=== PATIENT | female | born 1995 | race African-American/Black ===

== ENCOUNTER 2017-04-16 19:23 | Emergency (ER) | payer SELFPAY | END 2017-04-16 21:31 | disposition home or self-care (01) | LOC: ERS 19:23 | DX: N92.6 Irregular menstruation, unspecified (principal); Z32.02 Encounter for pregnancy test, result negative | CPT/HCPCS: 81025; 99282 ==

== ENCOUNTER 2017-11-18 22:29 | Emergency (ER) | payer OTHER, SELFPAY ==
[2017-11-18 22:55] LABS: Bilirubin Negative (Negative); Blood, Urine Negative (Negative); Clarity CLOUDY (Clear); Glucose, Urine (Dipstick) Negative (Negative); Leukocyte Large (Negative); Nitrite Negative (Negative); Protein, Urine (Dipstick) Trace mg/dL (Neg-Trace); Specific Gravity, Urine 1.025 (1.002-1.036)
[2017-11-18 22:57] LABS: Bacteria/HPF Rare-Few HPF (None Seen); Hyaline Casts/LPF 0-3 HYALINE CAST LPF (0-3 Hyaline); Pathc Cast-AUWi Flag 0.58 (0-2.49); RBC/HPF 0-3 HPF (0-3); Squamous Epithelial 0-3 HPF (0-3)
[2017-11-18] MEDS ORDERED: Lidocaine 1% PF 5 ML VIAL ONE (23:15)
[2017-11-18] MEDS ORDERED: cefTRIAXone\\ROCEPHIN 250 MG VIAL ONE (23:15)
[2017-11-18] MEDS ORDERED: Azithromycin 250 MG TAB ONE (23:15)
== END 2017-11-18 23:36 | disposition home or self-care (01) ==
LOC: ERS 22:29
DX: O98.812 Other maternal infectious and parasitic diseases complicating pregnancy, second trimester (principal); B37.3 Candidiasis of vulva and vagina; Z3A.23 23 weeks gestation of pregnancy
CPT/HCPCS: 81003; 81015; 87086; 87480; 87491; 87510; 87591; 87660; 96372; J0696; J2001

== ENCOUNTER 2018-03-13 21:21 | Day surgery (SDC) | payer OTHER ==
[2018-03-13 21:57] VITALS: BP 123/69; TEMP 99.3; BMI 41.5
--- NOTE | 2018-03-13 22:31 | PDOC.LDHP ---
Labor and Delivery H&P Chief complaint: abdominal pain (cramping quality, episodic, similar to menstrual cramps) HPI: 22 yo @ 39.6 by LMP who has had care at [facility] presents for evaluation of episodic "period like" cramping that is episodic occurring every 5-10 minutes which started at approx 2030 this evening. She is scheduled for post dates induction next week. She denies associated NVDC, fever/chills, cp , sob, vaginal bleeding, LOF, vaginal discharge, dysuria, hematuria. Reports positive movement. ROS: -General:Denies fever, chills -CV: Denies CP, edema -Respiratory: denies SOB, cough -Abd: reports abdominal cramping, denies nvdc -OB: Denies LOF, vaginal bleeding, vaginal discharge, reports good movement Current gestational age (weeks): 39 (+6) Due date: 03/14/18 Dating criteria: last menstrual period, first trimester ultrasound Grav: 1 Para: 0 Current complications: none Abnormal US findings: No (No records available) Current medications: pre-izabela vitamins Previous surgical history: none Social history: none - Physical Exam Vital signs reviewed and normal: yes General: NAD, resting, breathing through contractions Heart: RRR Lungs: nonlabored breathing Abdomen: NTTP Extremeties: no edema FHT: category 1, variability present [place] contractions every: 10 minutes - Vaginal Exam cm dilated: 0 Effacement: 0% Station: -3 - OB Labs Blood type: unknown RH: unknown Antibody Screen: unknown HIV: unknown RPR: unknown HEPSAg: unknown 1 hour GCT: unknown GBS: unknown Urine drug screen: not done - Assessment L&D Assessment: term patient in labor (latent phase vs zac diaz) TIUP in latent labor vs sporadic zac diaz ctx: - reactive strip on EFM w/ baseline fhts 140s with positive accels - cervical check c/t/h - rare contractions on toco monitor - latent labor in primip - PO hydrate and discharge to home with labor precautions and recommend f/u with primary OB provider - Plan Plan: other (discharge to home after 30 minutes of reactive strip and po hydration) <Nick Ruggiero - Last Filed: 03/13/18 22:26> <Bal Kinsey - Last Filed: 03/14/18 07:22> Allergies/Adverse Reactions: Allergies Allergy/AdvReac Type Severity Reaction Status Date / Time No Known Drug Allergies Allergy Verified 03/13/18 21:50 Attending Addendum - Attending Addendum Date/Time: 03/14/18720 I personally evaluated the patient and discussed the management with Dr. Ruggiero I agree with the History, Examination, Assessment and Plan documented above with any addition or exceptions noted below. <Bal Kinsey - Last Filed: 03/14/18 07:22>
== END 2018-03-13 23:02 | disposition home or self-care (01) ==
LOC: L&D/OP 21:21
PROVIDERS: ATTEND Obstetrics & Gynecology
DX: O47.1 False labor at or after 37 completed weeks of gestation (principal); O99.89 Other specified diseases and conditions complicating pregnancy, childbirth and the puerperium; R10.9 Unspecified abdominal pain; Z3A.39 39 weeks gestation of pregnancy; Z79.899 Other long term (current) drug therapy
CPT/HCPCS: 99282

== ENCOUNTER 2018-06-04 11:22 | Emergency (ER) | payer OTHER ==
[2018-06-04] MEDS ORDERED: Lidocaine 1% (PF) 30 ML VIAL ONE (12:21)
== END 2018-06-04 13:35 | disposition home or self-care (01) ==
LOC: ERS 11:22
DX: L02.411 Cutaneous abscess of right axilla (principal)
CPT/HCPCS: 10060; J2001

== ENCOUNTER 2018-08-29 17:26 | Emergency (ER) | payer OTHER, SELFPAY ==
[2018-08-29] MEDS ORDERED: Ondansetron ODT 4 MG TAB ONE (17:35)
[2018-08-29 17:51] LABS: Bilirubin Negative (Negative); Blood, Urine Negative (Negative); Clarity CLOUDY (Clear); Glucose, Urine (Dipstick) Negative (Negative); Leukocyte Negative (Negative); Nitrite Negative (Negative); Pregnancy Test - Urine (BHCG) Negative (Negative); Pregu Control Background? CLEAR/WHITE (CLR/WHITE); Pregu Control Bar Appear? YES (CONTROL BAR); Protein, Urine (Dipstick) Negative (Neg-Trace); Specific Gravity 1.023 (1.002-1.036); Specific Gravity, Urine 1.023 (1.002-1.036); pH, Urine 7.5 (5.0-9.0)
[2018-08-29] MEDS ORDERED: Dicyclomine 20 MG TAB ONE (18:42)
== END 2018-08-29 19:50 | disposition home or self-care (01) ==
LOC: ERS 17:26
DX: R11.2 Nausea with vomiting, unspecified (principal)
CPT/HCPCS: 81003; 81025; 99284; Q0162

== ENCOUNTER 2019-01-25 22:38 | Emergency (ER) | payer SELFPAY ==
[2019-01-25 23:07] LABS: Bacteria/HPF 4+ HPF (None Seen); Bilirubin Negative (Negative); Clarity Clear (Clear); Glucose, Urine (Dipstick) Normal (Negative); Leukocyte 500 Leu/uL (Negative); Mucous/LPF 4+ LPF (<2+); Nitrite 2+ (Negative); Pregnancy Test - Urine (BHCG) Negative (Negative); Pregu Control Background? CLEAR/WHITE (CLR/WHITE); Pregu Control Bar Appear? YES (CONTROL BAR); Protein, Urine (Dipstick) 20 mg/dL (Neg-Trace); Specific Gravity 1.033 (1.002-1.036); Squamous Epithelial 0-3 HPF (0-3); Urobilinogen Normal mg/dL (Less than 2); WBC/HPF 21-50 HPF (0-3)
[2019-01-25 23:08] LABS: Blood, Urine Trace (Negative)
[2019-01-25] MEDS ORDERED: cefTRIAXone\\ROCEPHIN 250 MG VIAL ONE (23:18)
[2019-01-25] MEDS ORDERED: Azithromycin 250 MG TAB ONE (23:18)
[2019-01-25] MEDS ORDERED: Lidocaine 1% (PF) 30 ML VIAL ONE (23:18)
[2019-01-28 01:14] LABS: GC by PCR Inconclusive (NotDetected)
[2019-01-28 01:15] LABS: Chlamydia by PCR Inconclusive (NotDetected)
== END 2019-01-25 23:35 | disposition home or self-care (01) ==
LOC: ERS 22:38
DX: N72 Inflammatory disease of cervix uteri (principal); N89.8 Other specified noninflammatory disorders of vagina
CPT/HCPCS: 81003; 81015; 81025; 87077; 87086; 87186; 87480; 87491; 87510; 87591; 87660; 96372; 99283; J0696; J2001

== ENCOUNTER 2019-05-30 21:54 | Emergency (ER) | payer SELFPAY | END 2019-05-30 22:42 | disposition home or self-care (01) | LOC: ERS 21:54 | DX: Z11.3 Encounter for screening for infections with a predominantly sexual mode of transmission (principal) | CPT/HCPCS: 99281 ==

== ENCOUNTER 2020-07-29 15:44 | Emergency (ER) | payer SELFPAY ==
[2020-07-29 16:25] LABS: Bacteria/HPF 1+ HPF (None Seen); Bilirubin Negative (Negative); Blood, Urine Trace (Negative); Clarity Turbid (Clear); Glucose, Urine (Dipstick) Normal (Negative); Ketone, Urine Negative (Negative); Leukocyte 500 Leu/uL (Negative); Nitrite Negative (Negative); Protein, Urine (Dipstick) 20 mg/dL (Neg-Trace); Specific Gravity, Urine 1.022 (1.002-1.036); Sperm/HPF Rare HPF (None Seen); Urobilinogen Normal mg/dL (Less than 2); Yeast-Budding 2+ HPF (None Seen); pH, Urine 7.5 (5.0-9.0)
[2020-07-29] MEDS ORDERED: cefTRIAXone\\ROCEPHIN 500 MG VIAL ONE (17:12)
[2020-07-29] MEDS ORDERED: Lidocaine 1% (PF) 30 ML VIAL ONE (17:12)
[2020-07-29 17:27] LABS: Pregnancy Test - Urine (BHCG) Negative (Negative); Pregu Control Background? CLEAR/WHITE (CLR/WHITE); Pregu Control Bar Appear? YES (CONTROL BAR); Specific Gravity 1.022 (1.002-1.036)
[2020-07-31 21:20] LABS: Chlamydia by PCR Not Detected (NotDetected); GC by PCR Not Detected (NotDetected)
== END 2020-07-29 18:22 | disposition home or self-care (01) ==
LOC: ERS 15:44
DX: B37.49 Other urogenital candidiasis (principal)
CPT/HCPCS: 81003; 81015; 81025; 87086; 87480; 87491; 87510; 87591; 87660; 96372; 99283; J0696; J2001

== ENCOUNTER 2020-08-12 17:54 | Emergency (ER) | payer MEDICAID, SELFPAY ==
[2020-08-12] MEDS ORDERED: Lidocaine 1% (PF) 30 ML VIAL ONE (18:24)
== END 2020-08-12 19:45 | disposition home or self-care (01) ==
LOC: ERS 17:54
DX: L02.411 Cutaneous abscess of right axilla (principal)
CPT/HCPCS: 10060; J2001

== ENCOUNTER 2020-11-19 19:39 | Emergency (ER) | payer SELFPAY ==
[2020-11-19 20:59] LABS: Bilirubin Negative (Negative); Blood, Urine Trace (Negative); Glucose, Urine (Dipstick) Negative (Negative); Ketone, Urine Negative (Negative); Leukocyte Small (Negative); Nitrite Negative (Negative); Protein, Urine (Dipstick) Negative (Neg-Trace); Urobilinogen 0.2 mg/dL (Less than 2)
[2020-11-19 21:07] LABS: Clarity Cloudy (Clear); Pregnancy Test - Urine (BHCG) Negative (Negative); Pregu Control Background? CLEAR/WHITE (CLR/WHITE); Pregu Control Bar Appear? YES (CONTROL BAR)
[2020-11-19 21:13] LABS: Bacteria/HPF 3+ HPF (None Seen); Squamous Epithelial 21-50 HPF (0-3); WBC/HPF 21-50 HPF (0-3)
[2020-11-19] MEDS ORDERED: Sterile Water 10 ML ONE (21:18)
[2020-11-19] MEDS ORDERED: cefTRIAXone\\ROCEPHIN 500 MG VIAL ONE (21:18)
[2020-11-20 20:48] LABS: Chlamydia by PCR Not Detected (NotDetected); GC by PCR Not Detected (NotDetected)
== END 2020-11-19 21:45 | disposition home or self-care (01) ==
LOC: ERS 19:39
DX: N89.8 Other specified noninflammatory disorders of vagina (principal)
CPT/HCPCS: 81003; 81015; 81025; 87480; 87491; 87510; 87591; 87660; 96372; 99283; J0696

== ENCOUNTER 2021-05-09 13:17 | Emergency (ER) | payer SELFPAY ==
[2021-05-09] MEDS ORDERED: cefTRIAXone\\ROCEPHIN 500 MG VIAL ONE (14:21)
[2021-05-09] MEDS ORDERED: Lidocaine 1% (PF) 30 ML VIAL ONE (14:23)
[2021-05-09] MEDS ORDERED: Lidocaine 1% PF 5 ML VIAL ONE (14:23)
[2021-05-09 14:30] LABS: Bilirubin Negative (Negative); Blood, Urine Negative (Negative); Glucose, Urine (Dipstick) Negative (Negative); Ketone, Urine Negative (Negative); Leukocyte Moderate (Negative); Nitrite Negative (Negative); Protein, Urine (Dipstick) Negative (Neg-Trace); Urobilinogen 0.2 mg/dL (Less than 2)
[2021-05-09 14:31] LABS: Clarity Hazy (Clear)
[2021-05-09 14:32] LABS: Pregnancy Test - Urine (BHCG) Negative (Negative); Pregu Control Background? CLEAR/WHITE (CLR/WHITE); Pregu Control Bar Appear? YES (CONTROL BAR)
[2021-05-09 14:37] LABS: Bacteria/HPF Rare-Few HPF (None Seen)
[2021-05-11 09:15] LABS: Chlamydia by PCR Not Detected (NotDetected); GC by PCR Not Detected (NotDetected)
== END 2021-05-09 14:58 | disposition home or self-care (01) ==
LOC: ERS 13:17
DX: A64 Unspecified sexually transmitted disease (principal); N89.8 Other specified noninflammatory disorders of vagina
CPT/HCPCS: 81003; 81015; 81025; 87480; 87491; 87510; 87591; 87660; 96372; 99283; J0696; J2001

== ENCOUNTER 2022-01-24 07:44 | Emergency (ER) | payer SELFPAY | END 2022-01-24 08:25 | disposition home or self-care (01) | LOC: ERS 07:44 | DX: R11.2 Nausea with vomiting, unspecified (principal); R19.7 Diarrhea, unspecified; R10.9 Unspecified abdominal pain | CPT/HCPCS: 99283 ==

== ENCOUNTER 2022-03-07 09:05 | Emergency (ER) | payer OTHER, SELFPAY | END 2022-03-07 11:35 | disposition home or self-care (01) | LOC: ERS 09:05 | DX: S50.12XA Contusion of left forearm, initial encounter (principal); V42.5XXA Car driver injured in collision with two- or three-wheeled motor vehicle in traffic accident, initial encounter | CPT/HCPCS: 99283 ==

== ENCOUNTER 2023-04-02 15:41 | Emergency (ER) | payer OTHER, SELFPAY | END 2023-04-02 18:13 | disposition home or self-care (01) | LOC: ERS 15:41 | DX: M54.50 Low back pain, unspecified (principal); V47.5XXA Car driver injured in collision with fixed or stationary object in traffic accident, initial encounter | CPT/HCPCS: 99283 ==